=== PATIENT | male | born 1960 | race Caucasian/White ===

== ENCOUNTER 2019-11-28 12:03 | Emergency (ER) | payer BC, SELFPAY ==
[2019-11-28 12:09] VITALS: BP 177/96; PULSE 78; RESP 14; TEMP 36.4; O2SAT 99
--- NOTE | 2019-11-28 12:20 | ED.BACK ---
HPI - Back Pain/Injury <PAOLO Bateman - Last Filed: 11/28/19 21:22> General Chief Complaint: Back Pain/Injury Stated Complaint: hurt back Time Seen by Provider: 11/28/19 12:15 Source: patient History of Present Illness HPI Narrative: 58yo male presents emergency department presents emergency department complaining of lower lumbar back pain for the past week. He states the dull aching pain 4/10 that is worse with raising his left leg, bending, and twisting. Patient reports the pain radiates down his left leg. He states about a week ago he moved a large bed and the pain started after this. He denies any numbness, tingling, leg weakness, loss of bowel or bladder control, saddle paresthesias, fevers, chills, trauma to the area, back manipulation, nausea, vomiting, diarrhea, or other concerns. He denies any history of back problems, surgeries, or history of lumbar disc disease. Related Data Previous Rx's Medication Instructions Recorded cyclobenzaprine 10 mg PO TID #20 tab 11/28/19 hydrocodone-acetaminophen [[place]] 1 tab PO Q4-6H PRN #10 tab 11/28/19 Allergies Allergy/AdvReac Type Severity Reaction Status Date / Time codeine Allergy Unknown Verified 11/28/19 12:40 Review of Systems <PAOLO Bateman - Last Filed: 11/28/19 21:22> Review of Systems Narrative: REVIEW OF SYSTEMS: GENERAL: Denies fever or chills. HENT: No head trauma. EYES: No double vision or vision loss. CARDIOVASCULAR: No chest pain or syncope. RESPIRATORY: No shortness of breath or cough. GASTROINTESTINAL: No nausea, vomiting, diarrhea, or constipation. GENITOURINARY: No flank pain or dysuria. MUSCULOSKELETAL: Complains of left leg and lumbar back pain, see HPI. INTEGUMENTARY: No rash, lesions, or pruritus. NEURO: No numbness, tingling. PSYCH: No behavior or mood changes. Patient History <PAOLO Bateman - Last Filed: 11/28/19 21:22> Medical History No significant medical problems (Acute) Social History Smoking Status: Never smoker Smoking Status: Never smoker alcohol intake frequency: holidays/special occasions only Substance Use Type: does not use Exam <PAOLO Bateman - Last Filed: 11/28/19 21:22> Initial Vital Signs Initial Vital Signs: Vital Signs Temperature 97.6 F 11/28/19 12:09 Pulse Rate 78 11/28/19 12:09 Respiratory Rate 14 11/28/19 12:09 Blood Pressure 177/96 H 11/28/19 12:09 Pulse Oximetry 99 11/28/19 12:09 PHYSICAL EXAMINATION: GENERAL: Well groomed, alert, and cooperative. Answers questions promptly and appropriately. Vital signs noted. HENT: Normocephalic, atraumatic. EYES: Symmetrical, sclera white, no periorbital swelling. CARDIOVASCULAR: S1 and S2 sounds normal. Regular rate and rhythm, no murmurs, clicks, or bruits. No pedal edema. RESPIRATORY: Normal respiratory rate, trachea midline, airway patent. No stridor, nasal flaring or accessory muscle use. Lungs are clear in all [place]. MUSCULOSKELETAL: Tenderness to upper left paraspinal vertebral muscles, no spinal tenderness or deformities. Positive straight leg test on left side. Equal strength to lower extremities, deltoids, and forearms. No rashes, ecchymosis, or erythema. Normal gait and coordination. Equal tone and mass bilaterally. EXTREMITIES: CMS intact. SKIN: Warm, dry, soft, appropriate color for ethnicity. No lesions, rashes, or wounds. NEURO: Alert and Oriented X 3. No sensory deficits. PSYCH: Appropriate affect and mood. <Cruzito Mauro DO - Last Filed: 11/29/19 18:30> Initial Vital Signs Initial Vital Signs: Vital Signs Temperature 97.6 F 11/28/19 12:09 Pulse Rate 78 11/28/19 12:09 Respiratory Rate 14 11/28/19 12:09 Blood Pressure 177/96 H 11/28/19 12:09 Pulse Oximetry 99 11/28/19 12:09 Course <PAOOL Bateman - Last Filed: 11/28/19 21:22> Course Course Narrative: Patient was given a Toradol injection and Valium in the emergency department which improved pain. He was able to walk significantly better. Orders Ordered: Discontinued Medications Diazepam (Valium) 5 mg PO NOW ONE Stop: 11/28/19 12:17 Last Admin: 11/28/19 12:41 Dose: 5 mg Documented by: CARRIE Ketorolac Tromethamine (Toradol) 30 mg IM NOW ONE Stop: 11/28/19 12:17 Last Admin: 11/28/19 12:40 Dose: 30 mg Documented by: CARRIE Vital Signs Vital signs: Vital Signs - 8 hr 11/28/19 12:09 Temperature 97.6 F Pulse Rate [Radial] 78 Respiratory Rate 14 Blood Pressure [Left Arm] 177/96 H Pulse Oximetry 99 <Cruzito Mauro DO - Last Filed: 11/29/19 18:30> Orders Ordered: Discontinued Medications Diazepam (Valium) 5 mg PO NOW ONE Stop: 11/28/19 12:17 Last Admin: 11/28/19 12:41 Dose: 5 mg Documented by: CARRIE Ketorolac Tromethamine (Toradol) 30 mg IM NOW ONE Stop: 11/28/19 12:17 Last Admin: 11/28/19 12:40 Dose: 30 mg Documented by: CARRIE Vital Signs Vital signs: Vital Signs - 8 hr 11/28/19 12:09 Temperature 97.6 F Pulse Rate [Radial] 78 Respiratory Rate 14 Blood Pressure [Left Arm] 177/96 H Pulse Oximetry 99 MDM - Back Pain/Injury <PAOLO Bateman - Last Filed: 11/28/19 21:22> Medical Records Attestation: I reviewed the patient's medical records. Lab Data Attestation: I reviewed the patient's lab results. MDM Narrative Medical decision making narrative: History and examination consistent with sciatica due to positive straight leg test, history of back pain, history of pain that occurred after moving a large object, worsening pain with movement that is better with standing. Differential also includes herniated disc, pinched nerve, and muscle spasms. Patient felt significantly better after medication administration was able to walk without difficulty. Less concern for spinal fracture due to lack of trauma or spinal tenderness. Less concern for cauda equina due to lack of saddle paresthesias, no loss of bowel or bladder control, and resolved pain. Patient was encouraged to follow up with primary care provider in 1-2 weeks for further evaluation and discussion of possible physical therapy. Patient agreed to plan of care verbalized understanding. He was discharged with a muscle relaxer in in courage to take ibuprofen for the next 3 days to help with inflammation. Patient was given a small amount of [place] to help with significant pain, he was cautioned about the use of narcotics which can cause constipation, altered mental status, and respiratory depression. Patient agrees with plan of care verbalized understanding. No steroid taper was given as patient has diabetes and takes metformin. Discharge Plan Departure Patient Disposition: Home Clinical Impression: Sciatica Qualifiers: Laterality: left Qualified Code(s): M54.32 - Sciatica, left side Discharge Date/Time: 11/28/19 13:32 Instructions: DI for Sciatica, DI for Back Pain With Sciatica Activity Restrictions/Additional Instructions: Thank you for entrusting me with your care today. As discussed, your back pain is most likely caused from sciatica. I have given you a prescription for a muscle relaxer and a pain medication to use if you have severe pain. You have been prescribed a narcotic medication, this medication can make you drowsy. Do not drive while using this medication or perform activities that require mental alertness. These medications can also make you constipated, please use [id number] docusate sodium as needed for constipation. Please take 400 mg of ibuprofen with this medication every 6 hours to help with inflammation for the next 3 days. Do not take Tylenol with the narcotic pain medication as there was ordered Tylenol in it. Follow up with your primary care provider in 1-2 weeks for further evaluation and discussion about physical therapy as this will most likely benefit you. Return emergency department for any new or worsening symptoms such as loss of bowel or bladder control, chest pain, high fevers, or other concerns. Prescriptions: New cyclobenzaprine 10 mg tablet 10 mg PO TID Qty: 20 RF: 0 hydrocodone-acetaminophen [[place]] 5-325 mg tablet 1 tab PO Q4-6H PRN (Reason: pain) Qty: 10 RF: 0 Referrals: Madhuri Sharma [Primary Care Provider] - <Cruzito Mauro DO - Last Filed: 11/29/19 18:30> Sign Out Provider Sign Out Attestation: Dr Mauro Co-Sign Statement: I was available for consultation during this patient's emergency department visit. This chart is signed by myself for administrative purposes only. I did not have direct contact with this patient during this visit. They were seen independently by the APC.
[2019-11-28] MEDS: KETOROLAC 60 MG/2 ML VIAL 30 MG IM (12:40)
[2019-11-28] MEDS: diazePAM 5 MG TABLET PO (12:41)
== END 2019-11-28 13:32 | disposition home or self-care (01) ==
PROVIDERS: Emergency Provider Nurse Practitioner; PCP Physician Assistant Medical
DX: M54.32 Sciatica, left side (principal)
CPT/HCPCS: 96372; 99283; J1885